=== PATIENT | male | born 1940 | race Caucasian/White ===

== ENCOUNTER 2018-02-25 12:05 | Emergency (ER) | payer BC, MEDICARE ==
[2018-02-25 12:19] VITALS: BP 127/68
--- NOTE | 2018-02-25 12:37 | UC ---
Throat Pain/Nasal Bakari HPI - HPI Summary HPI Summary: patient has had pain on the right side of his throat. last night coughed something up and there was blood. denies fever and pain in throat has decreased - History of Current Complaint Chief Complaint: UCGeneralIllness Stated Complaint: SORE THROAT Time Seen by Provider: 02/25/18 12:16 Hx Obtained From: Patient Onset/Duration: Sudden Onset, Lasting Days Severity: Mild Pain Intensity: 0 - Allergies/Home Medications Allergies/Adverse Reactions: Allergies Allergy/AdvReac Type Severity Reaction Status Date / Time lisinopril Allergy Coughing Verified 02/25/18 12:21 Penicillins Allergy Swelling Verified 02/25/18 12:21 PMH/Surg Hx/FS Hx/Imm Hx Previously Healthy: Yes - Surgical History Surgical History: Yes Surgery Procedure, Year, and Place: 1946 APPEN[place]CTOMY, [place]. 2008 CARDIAC STENT PLACEMENT, [place]. [place] [facility] [place]GU[place] [facility] [place] - Family History Known Family History: Positive: Cardiac Disease, Hypertension - Social History Alcohol Use: Rare Substance Use Type: None Smoking Status (MU): Never Smoked Tobacco Have You Smoked in the Last Year: No Review of Systems Constitutional: Negative Skin: Negative Eyes: Negative ENT: Sore Throat, Ear Ache Respiratory: Negative Cardiovascular: Negative Gastrointestinal: Negative Genitourinary: Negative Motor: Negative Neurovascular: Negative Musculoskeletal: Negative Neurological: Negative Psychological: Negative Is Patient Immunocompromised?: No All Other Systems Reviewed And Are Negative: Yes Physical Exam Triage Information Reviewed: Yes Appearance: Well-Appearing, No Pain Distress, Well-Nourished Vital Signs: Initial Vital Signs Temp 97.4 F 02/25/18 12:12 Pulse 49 02/25/18 12:12 Resp 16 02/25/18 12:12 BP 127/68 02/25/18 12:12 Pulse Ox 98 02/25/18 12:12 Vital Signs Reviewed: Yes Eye Exam: Normal ENT: Positive: Pharynx normal, TM bulging - on right side Dental Exam: Normal Neck exam: Normal Neck: Positive: Supple, Nontender, No Lymphadenopathy Respiratory Exam: Normal Respiratory: Positive: Chest non-tender, Lungs clear, Normal breath sounds Cardiovascular: Positive: No Murmur, Pulses Normal, Bradycardia Abdominal Exam: Normal Abdomen Description: Positive: Nontender, No Organomegaly, Soft Musculoskeletal Exam: Normal Neurological Exam: Normal Psychological Exam: Normal Skin Exam: Normal Throat Pain/Nasal Course/Dx - Course Course Of Treatment: hx obtained, exam performed ,meds reviewed, educated on use of flonase - Differential Dx/Diagnosis Differential Diagnosis/HQI/PQRI: Pharyngitis, Sinusitis, URI Provider Diagnoses: Pharyngitis. Serous otitis right ear Discharge - Sign-Out/Discharge Documenting (check all that apply): Patient Departure - Discharge Plan Condition: Stable Disposition: HOME Patient Education Materials: Serous Otitis Media (ED) Referrals: Scott Ferrara MD [Primary Care Provider] - Additional Instructions: 1. Warm compresses to the right side of neck and face to promote fluid movment 2. Flonase in each nostril 2 puffs daily for 1 month 3. If you develop fever, or worsening symtpoms follow up - Billing Disposition and Condition Condition: STABLE Disposition: Home
== END 2018-02-25 12:45 | disposition home or self-care (01) ==
LOC: UCEAST 12:05
DX: J02.9 Acute pharyngitis, unspecified (principal); H65.91 Unspecified nonsuppurative otitis media, right ear; Z95.5 Presence of coronary angioplasty implant and graft; Z88.0 Allergy status to penicillin; Z88.8 Allergy status to other drugs, medicaments and biological substances
CPT/HCPCS: 99212; G0463